=== PATIENT | male | born 1950 | race Caucasian/White ===

== ENCOUNTER → 2016-09-20 | Outpatient (CLI) | payer MEDICARE, BC ==
--- NOTE | 2016-09-08 15:44 | MH ---
cc: KAILEY ESCOTO DATE OF ADMISSION: 09/20/2016 ADMITTING DIAGNOSIS: Cloudy posterior capsule, left eye. HISTORY OF PRESENT ILLNESS: This 64-year-old white male is coming through [facility] for the purpose of a YAG laser posterior capsulotomy of the left eye. He is status post cataract surgery with intraocular lens implant in 2011 and did well postoperatively but now notices a decrease in acuity in his left eye and was found to have a cloudy posterior capsule and elected to have a YAG laser posterior capsulotomy at this time. He also has a history of bilateral wet macular degeneration for which he is undergoing treatment. PAST MEDICAL HISTORY: The patient has history of: 1. Cholesterol problems. 2. Back problems. 3. Kidney stones. 4. Myocardial infarction. 5. Cardiovascular disease. 6. Hypertension. PAST SURGICAL HISTORY: His past surgical history includes: 1. Heart catheterization 2. Back surgery. 3. Bilateral cataract surgery as mentioned above. 4. Skin cancer and melanoma on the left church area. MEDICATIONS: Daily medications include : 1. Lipitor. 2. Metoprolol. 3. Ocular vitamins. 4. Motrin PRN. ALLERGIES: 1. ROBITUSSIN. 2. BEE STINGS. 3. CECLOR. SOCIAL HISTORY: Noncontributory. FAMILY HISTORY: His family history is positive for father with glaucoma and mother and sister with macular degeneration. OCULAR EXAM: On ocular exam the patient's best corrected visual acuity is 20/25 -2 in each eye. Visual allen are full to confrontation testing. Extraocular muscle exam reveals full versions with exophoria at distance and near. Pupils are 3 mm equal, round, reactive to light without afferent defect. Anterior segment examination reveals a posterior chamber intraocular lens implant in place with a cloudy posterior capsule greater in the left eye than the right. Intraocular pressure is 18 in the right eye and 20 in the left by applanation tonometry. Dilated fundus exam revealed sharp disc with cup-to-disc ratio 0.35 in the right eye and 0.4 in the left. There are drusen and retinal pigment epithelial changes in the macula of each eye. A posterior vitreous detachment is present bilaterally. Cobblestone peripheral retinal degeneration is noted inferiorly in both eyes. IMPRESSION: 1. Cloudy posterior capsule left eye greater than right. 2. Pseudophakia both eyes 3. Macular degeneration both eyes - wet form. 4. Posterior vitreous detachment both eyes. PLAN: YAG laser posterior capsulotomy of the left eye through [facility]. MD CONCHITA Mitchell/EDUARD /2:16 PM /3:43 PM
[~2016-09-20] MED LIST: ATOR10TA15 PO; BALANCED SALT SOLN OPHT IRRIG 15 ML BTL ONE; FLUOROMETHOLONE 0.25% OPHT SUSP 5 ML BTL ONE; IBUP200C PO; OCCUVITE; PHENYLEPHRINE HCL 2.5% OPTH SOLN 2 ML BTL ONE; PROPARACAINE HCL 0.5% OPHT SOLN 15 ML BTL ONE; TROPICAMIDE 1% OPHT SOLN 15 ML BTL ONE
--- NOTE | 2016-09-20 13:49 | MP ---
cc: KAILEY SMALLS DATE OF SURGERY: 09/20/2016 PREOPERATIVE DIAGNOSIS Cloudy posterior capsule, left eye. POSTOPERATIVE DIAGNOSIS Cloudy posterior capsule, left eye. OPERATION YAG laser posterior capsulotomy, left eye. SURGEON Kailey Smalls MD ANESTHESIA Topical. COMPLICATIONS None. INDICATIONS See history and physical previously dictated. PROCEDURE The patient arrived at [facility]. Blood pressure was 118/68, pulse 68, respirations 16. A drop of Alphagan P and Mydriacyl were instilled in the left eye. The patient was seated at the YAG laser. A drop of Alcaine was instilled in the left eye and a YAG laser posterior capsulotomy lens was placed on the anterior surface of the left cornea. YAG laser posterior capsulotomy was carried out utilizing 30 exposures of 1.6 millijoules. An adequate opening was seen following the procedure. A drop of Alphagan P was instilled topically. The patient was given a prescription for a topical steroid to be used four times per day and has an appointment for follow up on the first postoperative day in my office. The patient left the [facility] in satisfactory condition. Kailey Smalls MD BRUSH MAKER/TLL /1:15 PM /2:33 PM .3
--- NOTE | 2016-09-20 13:51 | MP ---
cc: KAILEY SMALLS DATE OF SURGERY: 09/20/2016 PREOPERATIVE DIAGNOSIS Cloudy posterior capsule, left eye. POSTOPERATIVE DIAGNOSIS Cloudy posterior capsule, left eye. OPERATION YAG laser posterior capsulotomy, left eye. SURGEON Kailey Smalls MD ANESTHESIA Topical. COMPLICATIONS None. INDICATIONS See history and physical previously dictated. PROCEDURE The patient arrived at [facility]. Blood pressure was 118/68, pulse 68, respirations 16. A drop of Alphagan P and Mydriacyl were instilled in the left eye. The patient was seated at the YAG laser. A drop of Alcaine was instilled in the left eye and a YAG laser posterior capsulotomy lens was placed on the anterior surface of the left cornea. YAG laser posterior capsulotomy was carried out utilizing 30 exposures of 1.6 millijoules. An adequate opening was seen following the procedure. A drop of Alphagan P was instilled topically. The patient was given a prescription for a topical steroid to be used four times per day and has an appointment for follow up on the first postoperative day in my office. The patient left the [facility] in satisfactory condition. 27 and from [facility] the system of [facility], [facility] eyes SUMMARY That she have a bowel for the patient isabella injury. D ER in the [facility] Y. September 20, 1951 need her visit number was [id number] and this is the [facility] eyes. SUMMARY In the right eye blood pressure 164/91, pulse is 65 and the respirations is 16. In the right eye. We had argon laser first there is an argon laser number of exposures was 16 in my settings of 200 micron spot size 0.2 seconds exposure time of 400 milliwatts of power an argon laser number of exposures was 19 of 50 micron spot size 0.1 seconds exposure time and 950 milliwatts of power and a YAG laser number of exposures was seven with 3.9 millijoules of power finishing January 29, 1930 the ER in the [facility] eyes. SUMMARY On the right eye [facility] INDICATIONS September Kailey Smalls MD BARREL STRAIGHTENER/TLL /1:15 PM /1:39 PM .2
== END ==
LOC: PHSDC 11:22
PROVIDERS: ATTEND Ophthalmology
DX: H26.492 Other secondary cataract, left eye (principal)

== ENCOUNTER 2017-04-21 13:54 | Emergency (ER) | payer MEDICARE, BC ==
[~2017-04-21] VITALS: Ht 182.9 cm; Wt 86.0 kg
[~2017-04-21 13:54] MED LIST changes: -BALANCED SALT SOLN OPHT IRRIG 15 ML BTL ONE; -FLUOROMETHOLONE 0.25% OPHT SUSP 5 ML BTL ONE; -PHENYLEPHRINE HCL 2.5% OPTH SOLN 2 ML BTL ONE; -PROPARACAINE HCL 0.5% OPHT SOLN 15 ML BTL ONE; -TROPICAMIDE 1% OPHT SOLN 15 ML BTL ONE
[2017-04-21 14:24] VITALS: BP 158/67; PULSE 65; RESP 16; TEMP 99.1; O2SAT 97
[2017-04-21] MEDS ORDERED: SODIUM CHLOR 0.9% 1000 ML INJ 1,000 ML IV SCH (14:43)
[2017-04-21] MEDS ORDERED: KETOROLAC TROMETHAMINE 30 MG/ML (IVP) VIAL IVP ONE (14:45)
[2017-04-21] MEDS ORDERED: SODIUM CHLORIDE 0.9% FLUSH 10 ML FLUSH IV FLUSH PRN (14:45)
[2017-04-21] MEDS ORDERED: MORPHINE SULFATE 4 MG/ML INJ IV PUSH ONE ×2 (14:45→16:15)
[2017-04-21] MEDS ORDERED: ONDANSETRON HCL 4 MG/2 ML VIAL IVP ONE (14:45)
[2017-04-21 14:59] VITALS: O2SAT 98
[2017-04-21 15:04] LABS: AUTOMATED NEUTROPHIL # 9.1 TH/MM3 (1.8-7.7); BASOPHIL # 0.1 TH/MM3 (0-0.2); BASOPHIL % 0.6 % (0.0-2.0); EOSINOPHIL # 0.2 TH/MM3 (0-0.4); HEMATOCRIT 43.3 % (39.0-51.0); HEMO FLAGS DIFF FINAL; LYMPHOCYTE # 1.4 TH/MM3 (1.0-4.8); MEAN CELL VOLUME 92.9 FL (80.0-100.0); MEAN CORPUSCULAR HEMOGLOBIN 31.6 PG (27.0-34.0); MONO % 6.7 % (0.0-8.0); NEUT % 78.7 % (16.0-70.0); PLATELET COUNT 165 TH/MM3 (150-450); RED BLOOD COUNT 4.66 MIL/MM3 (4.50-5.90); RED CELL DISTRIBUTION WIDTH 12.5 % (11.6-17.2); WHITE BLOOD COUNT 11.6 TH/MM3 (4.0-11.0)
[2017-04-21 15:05] LABS: BLOOD, URINE LARGE (NEG); GLUCOSE,URINE NEG (NEG); KETONE, URINE TRACE mg/dL (NEG); NITRITE,URINE NEG (NEG)
[2017-04-21 15:17] LABS: COMMENT (UR) CULTURE INDICATED; CULTURE IF INDICATED CULTURE INDICATED; RBC, URINE INNUM /hpf (0-3); SQUAMOUS EPITHELIAL CELL URINE 0-5 /hpf (0-5); URINE COLOR BROWN (YELLW/STRAW)
[2017-04-21 15:18] LABS: CHLORIDE 107 MEQ/L (98-107); POTASSIUM 4.4 MEQ/L (3.5-5.1); SODIUM (NA) 140 MEQ/L (136-145)
[2017-04-21 15:22] LABS: ANION GAP 5 MEQ/L (5-15); BICARBONATE 27.9 MEQ/L (21.0-32.0); BLOOD UREA NITROGEN 26 MG/DL (7-18)
[2017-04-21 15:25] LABS: ALT (GPT) 21 U/L (12-78); AST (GOT) 15 U/L (15-37); GLOMERULAR FILTRATION RATE 74 ML/MIN (>89)
[2017-04-21 15:26] LABS: TOTAL BILIRUBIN ADULT 0.3 MG/DL (0.2-1.0)
[2017-04-21 15:28] LABS: ALKALINE PHOSPHATASE 86 U/L (45-117)
[2017-04-21 15:33] VITALS: BP 160/81; PULSE 63; RESP 20; O2SAT 98
--- NOTE | 2017-04-21 15:56 | RADRPT ---
EXAM DATE/TIME: 04/21/2017 15:22 [place] COMPARISON: No previous studies available for comparison. INDICATIONS : Left flank pain. ORAL CONTRAST: No oral contrast ingested. RADIATION DOSE: 16.53 CTDIvol (mGy) MEDICAL HISTORY : Myocardial infarction. SURGICAL HISTORY : None. ENCOUNTER: Initial ACUITY: 1 day PAIN SCALE: 8/10 LOCATION: Left flank TECHNIQUE: Volumetric scanning of the abdomen and pelvis was performed. Using automated exposure control and ad justment of the mA and/or kV according to patient size, radiation dose was kept as low as reasonably achievable to obtain optimal diagnostic quality images. DICOM format image data is available electro nically for review and comparison. FINDINGS: LOWER LUNGS: The visualized lower lungs are clear. LIVER: Homogeneous density without lesion. There is no dilation of the biliary tree. No calcified gallston es. SPLEEN: Normal size without lesion. PANCREAS: Within normal limits. KIDNEYS: 6 mm x 3 mm calculus in the proximal left ureter 3 cm distal to the ureteropelvic junction. Moderate left hydronephrosis and proximal left hydroureter. Prominent perinephric stranding on the left and en largement of the left kidney. Punctate 2 mm calculus in the lower pole of the left. 2 mm calculus in the midpole on the left. 3 mm calculus in the upper pole on the right. 3 mm calculus in the midpole o n the right. Multiple masses identified in the lower pole of the right kidney that are nonspecific on noncontrast exam. It measured up to 2 cm in diameter. Statistically most likely to represent cysts. ADRENAL GLANDS: Within normal limits. VASCULAR: There is no aortic aneurysm. BOWEL/MESENTERY: Numerous colonic diverticula. No evidence of acute diverticulitis. ABDOMINAL WALL: Within normal limits. RETROPERITONEUM: There is no lymphadenopathy. BLADDER: Multiple calculi in the dependent portion of the urinary bladder measuring up to 1.6 cm in diameter. REPRODUCTIVE: Extensive prostate calcification. INGUINAL: There is no lymphadenopathy or hernia. MUSCULOSKELETAL: Within normal limits for patient age. CONCLUSION: 1. 6 mm proximal left ureteral calculus with moderate left hydronephrosis and proximal left hydrouret er. 2. Multiple I lateral renal calculi. 3. Colonic diverticulosis. Rafal Manzo MD on April 21, 2017 at 15:49 Board Certified Radiologist. This report was verified electronically.
[2017-04-21] MEDS ORDERED: IBUP400T20 PO (15:57)
[2017-04-21] MEDS ORDERED: NORC5TAB PO (15:57)
[2017-04-21] MEDS ORDERED: TAMS5CAP PO (15:57)
--- NOTE | 2017-04-21 15:57 | PD ---
HPI Chief Complaint: Flank/Kidney Pain Time Seen by Provider: 14:36 Travel History International Travel<30 days: No Contact w/Intl Traveler<30days: No Traveled to known affect area: No History of Present Illness HPI The patient is a 67-year-old male who presents to the emergency department via private vehicle for left flank pain. The patient has had hematuria of 1 week's duration, however, earlier today developed left flank pain. The pain is located over the left aspect of the flank, nonradiating, associated mild nausea, but there is no vomiting. The patient does have a history of recurrent kidney stones, estimates that he has passed approximately 30 kidney stones over the last 10-15 years. The patient is followed by his urologist, Dr. Velazquez. The patient does note hematuria, denies any dysuria , frequency, urgency, or decreased urinary output. The patient does state he had urologic procedures performed approximately 30-40 years ago, but denies any recent stenting or lithotripsy. Symptoms are moderate, exacerbated by history kidney stones, and there are no current alleviating factors. PFSH Past Medical History Cancer: Yes (SKIN) Cardiovascular Problems: Yes (1987) High Cholesterol: Yes Diabetes: No Diminished Hearing: No Hepatitis: No Hiatal Hernia: No Myocardial Infarction: Yes Thyroid Disease: No Past Surgical History Eye Surgery: Yes ( cataract removal of the left eye with iol) Pacemaker: No Other Surgery: Yes Social History Alcohol Use: No Tobacco Use: Yes (2 PPD) Substance Use: No Allergies-Medications (Allergen,Severity, Reaction): Coded Allergies: cefaclor (Unverified Allergy, Severe, THROAT CLOSES, 04/21/17) guaifenesin (Unverified Allergy, Severe, THROAT CLOSES, 04/21/17) Uncoded Allergies: BEE STINGS (Allergy, Unknown, 08/04/04) Reported Meds & Prescriptions Reported Meds & Active Scripts Active Reported Atorvastatin (Atorvastatin Calcium) 10 Mg Tab 10 Mg PO DAILY [Occuvite] 1 DAILY Review of Systems Except as stated in HPI: all other systems reviewed are Neg General / Constitutional: No: Fever, Chills Cardiovascular: No: Chest Pain or Discomfort Respiratory: No: Shortness of Breath Gastrointestinal: Positive: Nausea, No: Vomiting, Abdominal Pain Genitourinary: Positive: Hematuria, Flank Pain, No: Dysuria Skin: No Rash Physical Exam Narrative GENERAL: Awake, alert, pleasant 67-year-old male who appears his stated age and is in no acute respiratory distress. SKIN: Focused skin assessment warm/dry. HEAD: Atraumatic. Normocephalic. EYES: Pupils equal and round. No scleral icterus. No injection or drainage. ENT: No nasal bleeding or discharge. Mucous membranes pink and moist. NECK: Trachea midline. No JVD. CARDIOVASCULAR: Regular rate and rhythm. No murmur appreciated. RESPIRATORY: No accessory muscle use. Clear to auscultation. Breath sounds equal bilaterally. GASTROINTESTINAL: Abdomen soft, mild left flank tenderness, no left lower quadrant tenderness. Back: No CVA tenderness. Mild left flank tenderness. MUSCULOSKELETAL: No obvious deformities. No clubbing. No cyanosis. No edema. NEUROLOGICAL: Awake and alert. No obvious cranial nerve deficits. Motor grossly within normal limits. Normal speech. PSYCHIATRIC: Appropriate mood and affect; insight and judgment normal. Data Data Last Documented VS Vital Signs Date Time Temp Pulse Resp B/P (MAP) Pulse Ox O2 Delivery O2 Flow Rate FiO2 04/21/17 15:33 63 20 160/81 (107) 98 04/21/17 14:24 99.1 Orders Orders Urinalysis - C+S If Indicated (04/21/17 14:26) Complete Blood Count With Diff (04/21/17 14:43) Comprehensive Metabolic Panel (04/21/17 14:43) Lipase (04/21/17 14:43) Ct Abd/Pel W/O Iv Contrast (04/21/17 14:43) Iv Access Insert/Monitor (04/21/17 14:43) Ecg Monitoring (04/21/17 14:43) Oximetry (04/21/17 14:43) Morphine Inj (Morphine Inj) (04/21/17 14:45) Ondansetron Inj (Zofran Inj) (04/21/17 14:45) Sodium Chlor 0.9% 1000 Ml Inj (Ns 1000 M (04/21/17 14:43) Sodium Chloride 0.9% Flush (Ns Flush) (04/21/17 14:45) Ketorolac Inj (Toradol Inj) (04/21/17 14:45) Urine Culture (04/21/17 14:59) Labs Laboratory Tests Test 04/21/17 14:59 White Blood Count 11.6 TH/MM3 Red Blood Count 4.66 MIL/MM3 Hemoglobin 14.7 GM/DL Hematocrit 43.3 % Mean Corpuscular Volume 92.9 FL Mean Corpuscular Hemoglobin 31.6 PG Mean Corpuscular Hemoglobin Concent 34.0 % Red Cell Distribution Width 12.5 % Platelet Count 165 TH/MM3 Mean Platelet Volume 7.9 FL Neutrophils (%) (Auto) 78.7 % Lymphocytes (%) (Auto) 12.0 % Monocytes (%) (Auto) 6.7 % Eosinophils (%) (Auto) 2.0 % Basophils (%) (Auto) 0.6 % Neutrophils # (Auto) 9.1 TH/MM3 Lymphocytes # (Auto) 1.4 TH/MM3 Monocytes # (Auto) 0.8 TH/MM3 Eosinophils # (Auto) 0.2 TH/MM3 Basophils # (Auto) 0.1 TH/MM3 CBC Comment DIFF FINAL Differential Comment Urine Color BROWN Urine Turbidity CLOUDY Urine pH 6.0 Urine Specific [place] 1.025 Urine Protein 100 mg/dL Urine Glucose (UA) NEG mg/dL Urine Ketones TRACE mg/dL Urine Occult Blood LARGE Urine Nitrite NEG Urine Bilirubin NEG Urine Leukocyte Esterase TRACE Urine RBC INNUM /hpf Urine WBC 9-14 /hpf Urine Squamous Epithelial Cells 0-5 /hpf Microscopic Urinalysis Comment CULTURE INDICATED Blood Urea Nitrogen 26 MG/DL Creatinine 1.00 MG/DL Random Glucose 118 MG/DL Total Protein 6.7 GM/DL Albumin 3.6 GM/DL Calcium Level 8.9 MG/DL Alkaline Phosphatase 86 U/L Aspartate Amino Transf (AST/SGOT) 15 U/L Alanine Aminotransferase (ALT/SGPT) 21 U/L Total Bilirubin 0.3 MG/DL Sodium Level 140 MEQ/L Potassium Level 4.4 MEQ/L Chloride Level 107 MEQ/L Carbon Dioxide Level 27.9 MEQ/L Anion Gap 5 MEQ/L Estimat Glomerular Filtration Rate 74 ML/MIN Lipase 119 U/L [facility] Medical Decision Making Medical Screen Exam Complete: Yes Emergency Medical Condition: Yes Medical Record Reviewed: Yes Interpretation(s) Laboratory Tests Test 04/21/17 14:59 White Blood Count 11.6 TH/MM3 Red Blood Count 4.66 MIL/MM3 Hemoglobin 14.7 GM/DL Hematocrit 43.3 % Mean Corpuscular Volume 92.9 FL Mean Corpuscular Hemoglobin 31.6 PG Mean Corpuscular Hemoglobin Concent 34.0 % Red Cell Distribution Width 12.5 % Platelet Count 165 TH/MM3 Mean Platelet Volume 7.9 FL Neutrophils (%) (Auto) 78.7 % Lymphocytes (%) (Auto) 12.0 % Monocytes (%) (Auto) 6.7 % Eosinophils (%) (Auto) 2.0 % Basophils (%) (Auto) 0.6 % Neutrophils # (Auto) 9.1 TH/MM3 Lymphocytes # (Auto) 1.4 TH/MM3 Monocytes # (Auto) 0.8 TH/MM3 Eosinophils # (Auto) 0.2 TH/MM3 Basophils # (Auto) 0.1 TH/MM3 CBC Comment DIFF FINAL Differential Comment Urine Color BROWN Urine Turbidity CLOUDY Urine pH 6.0 Urine Specific [place] 1.025 Urine Protein 100 mg/dL Urine Glucose (UA) NEG mg/dL Urine Ketones TRACE mg/dL Urine Occult Blood LARGE Urine Nitrite NEG Urine Bilirubin NEG Urine Leukocyte Esterase TRACE Urine RBC INNUM /hpf Urine WBC 9-14 /hpf Urine Squamous Epithelial Cells 0-5 /hpf Microscopic Urinalysis Comment CULTURE INDICATED Blood Urea Nitrogen 26 MG/DL Creatinine 1.00 MG/DL Random Glucose 118 MG/DL Total Protein 6.7 GM/DL Albumin 3.6 GM/DL Calcium Level 8.9 MG/DL Alkaline Phosphatase 86 U/L Aspartate Amino Transf (AST/SGOT) 15 U/L Alanine Aminotransferase (ALT/SGPT) 21 U/L Total Bilirubin 0.3 MG/DL Sodium Level 140 MEQ/L Potassium Level 4.4 MEQ/L Chloride Level 107 MEQ/L Carbon Dioxide Level 27.9 MEQ/L Anion Gap 5 MEQ/L Estimat Glomerular Filtration Rate 74 ML/MIN Lipase 119 U/L Differential Diagnosis Differential diagnosis includes nephrolithiasis, hydronephrosis, pyelonephritis , diverticulitis, infarcted kidney. Narrative Course IV was established, labs are drawn and sent, and the patient was placed on cardiac telemetry monitoring and continuous pulse oximetry monitoring. UA was sent to lab. UA does reveal innumerable RBCs, 9-14 WBCs, most likely secondary to hematuria, but patient will be treated with Bactrim. White count is minimally elevated 11.6, creatinine is normal. CT the abdomen and pelvis is positive for left nephrolithiasis. The patient was reevaluated at 3:51 PM. The patient states his pain is still to 5/10. The patient does have a kidney stone, will be provided a copy of his CT results and lab results at discharge. He is advised to follow-up with his urologist tomorrow. Return sooner if symptoms worsen or progress. Diagnosis Primary Impression: Nephrolithiasis Patient Instructions: General Instructions Additional Instructions: Medications as directed. Follow-up with your primary physician. Follow-up with your urologist. Plenty fluids to stay hydrated. Please provide the patient a copy of his CT results and lab results at discharge. Med/Other Pt SpecificInfo: Prescription(s) given Scripts Tamsulosin (Flomax) 0.4 Mg Cap 0.4 MG PO HS for Manage Prostate Problems, #7 CAP 0 Refills Prov: Hugh Arias MD 04/21/17 Hydrocodone-Acetaminophen ([place]) 5-325 mg Tab 1 TAB PO Q6H Y for PAIN, #20 TAB 0 Refills Prov: Hugh Arias MD 04/21/17 Ibuprofen (Ibuprofen) 400 Mg Tab 400 MG PO Q6H Y for PAIN SCALE 1 TO 10, #20 TAB 0 Refills Prov: Hugh Arias MD 04/21/17 Disposition: 01 DISCHARGE HOME Condition: Stable Hugh Arias MD Apr 21, 2017 15:57
[2017-04-21] MEDS ORDERED: BACT800T5 PO (16:06)
[2017-04-21 16:13] VITALS: BP 158/74; PULSE 78; RESP 18; O2SAT 95
== END 2017-04-21 17:14 | disposition home or self-care (01) ==
LOC: PHED 13:54
DX: N13.2 Hydronephrosis with renal and ureteral calculous obstruction (principal); K57.30 Diverticulosis of large intestine without perforation or abscess without bleeding; F17.200 Nicotine dependence, unspecified, uncomplicated
CPT/HCPCS: 74176; 80053; 81001; 83690; 85025; 87086; 96361; 96374; 96375; 96376; 99285; J1885; J2270; J2405; J7030

== ENCOUNTER 2017-05-17 14:01 | Emergency (ER) | payer MEDICARE, BC ==
[~2017-05-17] VITALS: Ht 182.9 cm; Wt 87.7 kg
[~2017-05-17 14:01] MED LIST changes: +BACT800T5 PO; -IBUP200C PO; +IBUP400T20 PO; +NORC5TAB PO; +TAMS5CAP PO
[2017-05-17 14:23] VITALS: BP 181/80; PULSE 66; RESP 18; TEMP 97.8; O2SAT 96
[2017-05-17] MEDS ORDERED: LISI-519 PO (14:59)
[2017-05-17] MEDS ORDERED: LIPI10TA PO (14:59)
[2017-05-17] MEDS ORDERED: HYDROmorphone HCL PF 1 MG/ML VIAL IV PUSH ONE (15:00)
[2017-05-17] MEDS ORDERED: ONDANSETRON HCL 4 MG/2 ML VIAL IVP ONE (15:00)
[2017-05-17] MEDS ORDERED: KETOROLAC TROMETHAMINE 30 MG/ML (IVP) VIAL IVP ONE (15:00)
[2017-05-17] MEDS ORDERED: SODIUM CHLORIDE 0.9% FLUSH 10 ML FLUSH IVF PRN (15:00)
--- NOTE | 2017-05-17 15:11 | PD ---
HPI Chief Complaint: Flank/Kidney Pain Time Seen by Provider: 14:46 Travel History International Travel<30 days: No Contact w/Intl Traveler<30days: No Traveled to known affect area: No History of Present Illness HPI This 67-year-old male is complaining of right flank pain. This gentleman has a 40 year history of kidney stones. He says he has passed many kidney stones. He was seen in the ER a month ago with a left-sided kidney stone that was 6 mm in the proximal ureter. He was noted to have bilateral kidney stones at that time. He took Lortab without much response. He has not had fever or chills. He is not aware of having passed the stone on the left side. PFSH Past Medical History Cancer: Yes (SKIN) Cardiac Catheterization: Yes (WITH [place] 1987) Cardiovascular Problems: Yes (hx heart attack) High Cholesterol: Yes Coronary Artery Disease: Yes Diabetes: No Diminished Hearing: No Hepatitis: No Hiatal Hernia: No Hypertension: Yes Immunizations Current: Yes Myocardial Infarction: Yes Thyroid Disease: No Influenza Vaccination: No ?: Not Past Surgical History Eye Surgery: Yes ( cataract removal of the left eye with iol) Pacemaker: No Other Surgery: Yes Social History Alcohol Use: No Tobacco Use: Yes (2 PPD) Substance Use: No Allergies-Medications (Allergen,Severity, Reaction): Coded Allergies: cefaclor (Unverified Allergy, Severe, THROAT CLOSES, 04/21/17) guaifenesin (Unverified Allergy, Severe, THROAT CLOSES, 04/21/17) Uncoded Allergies: BEE STINGS (Allergy, Unknown, 08/04/04) Reported Meds & Prescriptions Reported Meds & Active Scripts Active Percocet (Oxycodone-Acetaminophen) 10-325 mg Tab 1 Tab PO Q4H PRN [place] (Hydrocodone-Acetaminophen) 5-325 mg Tab 1 Tab PO Q6H PRN Reported Lisinopril 5 Mg Tab 5 Mg PO DAILY Lipitor (Atorvastatin Calcium) 10 Mg Tab 0.5 Tab PO DAILY [Occuvite] 1 DAILY Review of Systems General / Constitutional: No: Fever, Chills Eyes: No: Diploplia, Blurred Vision HENT: No: Headaches Cardiovascular: No: Chest Pain or Discomfort, Palpitations Respiratory: No: Cough, Shortness of Breath Gastrointestinal: No: Nausea, Vomiting Genitourinary: Positive: Hematuria, Flank Pain Musculoskeletal: No: Myalgias, Arthralgias Skin: No Rash Physical Exam Narrative GENERAL: Well-developed male SKIN: Focused skin assessment warm/dry. HEAD: Atraumatic. Normocephalic. EYES: Pupils equal and round. No scleral icterus. No injection or drainage. ENT: No nasal bleeding or discharge. Mucous membranes pink and moist. NECK: Trachea midline. No JVD. CARDIOVASCULAR: Regular rate and rhythm. No murmur appreciated. RESPIRATORY: No accessory muscle use. Clear to auscultation. Breath sounds equal bilaterally. GASTROINTESTINAL: Abdomen soft, non-tender, nondistended. Hepatic and splenic margins not palpable. There is right CVA tenderness MUSCULOSKELETAL: No obvious deformities. No clubbing. No cyanosis. No edema. NEUROLOGICAL: Awake and alert. No obvious cranial nerve deficits. Motor grossly within normal limits. Normal speech. PSYCHIATRIC: Appropriate mood and affect; insight and judgment normal. Data Data Last Documented VS Vital Signs Date Time Temp Pulse Resp B/P (MAP) Pulse Ox O2 Delivery O2 Flow Rate FiO2 05/17/17 14:23 97.8 66 18 181/80 (113) 96 Orders Orders Basic Metabolic Panel (Bmp) (05/17/17 14:57) Complete Blood Count With Diff (05/17/17 14:57) Urinalysis - C+S If Indicated (05/17/17 14:57) Ct Abd/Pel W/O Iv Contrast (05/17/17 14:57) Iv Access Insert/Monitor (05/17/17 14:57) Ketorolac Inj (Toradol Inj) (05/17/17 15:00) Ondansetron Inj (Zofran Inj) (05/17/17 15:00) Sodium Chloride 0.9% Flush (Ns Flush) (05/17/17 15:00) Hydromorphone Pf Inj (Dilaudid Pf Inj) (05/17/17 15:00) Labs Laboratory Tests Test 05/17/17 14:55 05/17/17 15:05 Urine Collection Type VOIDED Urine Color YELLOW Urine Turbidity SLIGHT Urine pH 5.5 Urine Specific [place] 1.026 Urine Protein 100 mg/dL Urine Glucose (UA) NEG mg/dL Urine Ketones NEG mg/dL Urine Occult Blood LARGE Urine Nitrite NEG Urine Bilirubin NEG Urine Leukocyte Esterase TRACE Urine RBC INNUM /hpf Urine WBC 6-8 /hpf Urine Squamous Epithelial Cells 0-5 /hpf Urine Bacteria RARE /hpf Microscopic Urinalysis Comment CULT NOT INDICATED White Blood Count 11.9 TH/MM3 Red Blood Count 4.71 MIL/MM3 Hemoglobin 14.6 GM/DL Hematocrit 43.8 % Mean Corpuscular Volume 93.1 FL Mean Corpuscular Hemoglobin 30.9 PG Mean Corpuscular Hemoglobin Concent 33.2 % Red Cell Distribution Width 12.4 % Platelet Count 170 TH/MM3 Mean Platelet Volume 7.9 FL Neutrophils (%) (Auto) 79.9 % Lymphocytes (%) (Auto) 9.9 % Monocytes (%) (Auto) 8.2 % Eosinophils (%) (Auto) 1.2 % Basophils (%) (Auto) 0.8 % Neutrophils # (Auto) 9.5 TH/MM3 Lymphocytes # (Auto) 1.2 TH/MM3 Monocytes # (Auto) 1.0 TH/MM3 Eosinophils # (Auto) 0.1 TH/MM3 Basophils # (Auto) 0.1 TH/MM3 CBC Comment DIFF FINAL Differential Comment Blood Urea Nitrogen 24 MG/DL Creatinine 1.10 MG/DL Random Glucose 119 MG/DL Calcium Level 8.8 MG/DL Sodium Level 142 MEQ/L Potassium Level 4.1 MEQ/L Chloride Level 111 MEQ/L Carbon Dioxide Level 24.0 MEQ/L Anion Gap 7 MEQ/L Estimat Glomerular Filtration Rate 66 ML/MIN [facility] Medical Decision Making Medical Screen Exam Complete: Yes Emergency Medical Condition: Yes Medical Record Reviewed: Yes Differential Diagnosis Differential includes renal colic, UTI, Narrative Course Patient has had recently had a left stone which is not aware of passing and is possibly could have bilateral stones I felt it was important to do a CT to see if the size and position of the stones. He has been given Toradol and Dilaudid with improvement of his pain. CT shows 3 stones on the right side with hydronephrosis. Pain is currently controlled. He will be released with prescription for Percocet tens is a Lortab fives has not been helpful. He is to follow-up with Dr. Rivera Diagnosis Primary Impression: Renal colic on right side Referrals: Andrzej Rivera MD Scripts Oxycodone-Acetaminophen (Percocet) 10-325 mg Tab 1 TAB PO Q4H Y for PAIN, #20 TAB 0 Refills Prov: MacMahon,Orlando MD 05/17/17 Disposition: 01 DISCHARGE HOME Condition: Stable Orlando Renee MD May 17, 2017 15:11
[2017-05-17 15:16] LABS: AUTOMATED NEUTROPHIL # 9.5 TH/MM3 (1.8-7.7); BASOPHIL # 0.1 TH/MM3 (0-0.2); BASOPHIL % 0.8 % (0.0-2.0); EOSINOPHIL # 0.1 TH/MM3 (0-0.4); EOSINOPHIL % 1.2 % (0.0-4.0); HEMATOCRIT 43.8 % (39.0-51.0); HEMOGLOBIN 14.6 GM/DL (13.0-17.0); LYMPH % 9.9 % (9.0-44.0); LYMPHOCYTE # 1.2 TH/MM3 (1.0-4.8); MEAN CELL VOLUME 93.1 FL (80.0-100.0); MEAN CORPUSCULAR HEMOGLOBIN 30.9 PG (27.0-34.0); MEAN CORPUSCULAR HGB CONC 33.2 % (32.0-36.0); MEAN PLATELET VOLUME 7.9 FL (7.0-11.0); MONO % 8.2 % (0.0-8.0); NEUT % 79.9 % (16.0-70.0); PLATELET COUNT 170 TH/MM3 (150-450); RED BLOOD COUNT 4.71 MIL/MM3 (4.50-5.90); RED CELL DISTRIBUTION WIDTH 12.4 % (11.6-17.2); WHITE BLOOD COUNT 11.9 TH/MM3 (4.0-11.0)
[2017-05-17 15:20] LABS: BILIRUBIN, URINE NEG (NEG); BLOOD, URINE LARGE (NEG); GLUCOSE,URINE NEG (NEG); KETONE, URINE NEG (NEG); NITRITE,URINE NEG (NEG); PH, URINE 5.5 (5.0-8.5); URINE LEUKOCYTE ESTERASE TRACE (NEG)
[2017-05-17 15:33] LABS: CALCIUM 8.8 MG/DL (8.5-10.1)
[2017-05-17 15:37] LABS: CREATININE 1.1 MG/DL (0.60-1.30)
[2017-05-17 15:39] LABS: RBC, URINE INNUM /hpf (0-3); SQUAMOUS EPITHELIAL CELL URINE 0-5 /hpf (0-5); URINE COLOR YELLOW (YELLW/STRAW)
[2017-05-17 15:40] LABS: BACTERIA, URINE RARE /hpf
[2017-05-17] MEDS ORDERED: PERC10TA27 PO (15:41)
--- NOTE | 2017-05-17 15:53 | RADRPT ---
EXAM DATE/TIME: 05/17/2017 15:22 [place] COMPARISON: CT ABDOMEN & PELVIS W/O CONTRAST, April 21, 2017, 15:22. INDICATIONS : Right flank pain. ORAL CONTRAST: No oral contrast ingested. RADIATION DOSE: 21.66 CTDIvol (mGy) MEDICAL HISTORY : Renal calculi. Myocardial infarction. Hypertension.Skin cancer. SURGICAL HISTORY : Back surgery. ENCOUNTER: Initial ACUITY: 1 day PAIN SCALE: 6/10 LOCATION: Right flank TECHNIQUE: Volumetric scanning of the abdomen and pelvis was performed. Using automated exposure control and adjustment of the mA and/or kV according to patient size, radiation dose was kept as low as reasonably achievable to obtain optimal diagnostic quality images. DICOM format image data is av ailable electronically for review and comparison. FINDINGS: LOWER LUNGS: The visualized lower lungs are clear. LIVER: Homogeneous density without lesion. There is no dilation of the biliary tree. No calcifi ed gallstones. SPLEEN: Normal size without lesion. PANCREAS: Within normal limits. KIDNEYS: There is severe right-sided hydronephrosis extending to what appear to be 3 separate bul ky calcified ureteral calculi in the mid to distal right ureter. These measure 7 mm in axial dimensio n and 7 mm, 6 mm and 5 mm in coronal projection. There are stable 4 mm and 5 mm nonobstructing calyce al calculi in the posterior mid and superior poles of the right kidney. There is a stable 3 mm nonobs tructing calyceal calculi in the anterior mid left kidney. No additional calcified calculi are noted. There is a stable 2.2 cm cyst in the anterior-inferior pole of the right kidney. ADRENAL GLANDS: Within normal limits. VASCULAR: There is no aortic aneurysm. BOWEL/MESENTERY: Moderate sigmoid diverticulosis without significant inflammatory change. Bowel a ppears unremarkable without evidence for obstruction. ABDOMINAL WALL: Within normal limits. RETROPERITONEUM: There is no lymphadenopathy. BLADDER: Redemonstration of multiple bulky calcified calculi in the dependent portion of the blad dash measuring up to 1.8 cm. REPRODUCTIVE: Nonspecific prostatic calcifications. INGUINAL: Small bilateral largely fat containing inguinal hernia. MUSCULOSKELETAL: Within normal limits for patient age. CONCLUSION: 1. Severe right-sided hydroureteronephrosis extending to 3 separate or fragmented bulky calcified mid to distal ureteral calculi measuring 7 x 7 mm, 7 x 6 mm and 7 x 5 mm. 2. Small bilateral nonobstructing calyceal calculi measuring 3-5 mm, as above.\ 3. Stable multiple bulky calcified bladder calculi measuring up to 1.8 cm. 4. Additional ancillary findings, as above. Jason Armijo MD on May 17, 2017 at 15:34 Board Certified Radiologist. This report was verified electronically.
[2017-05-17 16:05] VITALS: BP 143/77; PULSE 68; RESP 16; O2SAT 96
== END 2017-05-17 16:16 | disposition home or self-care (01) ==
LOC: PHED 14:01
DX: N13.2 Hydronephrosis with renal and ureteral calculous obstruction (principal); I10 Essential (primary) hypertension; I25.10 Atherosclerotic heart disease of native coronary artery without angina pectoris; I25.2 Old myocardial infarction; F17.200 Nicotine dependence, unspecified, uncomplicated
CPT/HCPCS: 74176; 80048; 81001; 85025; 96374; 96375; 99285; J1170; J1885; J2405

== ENCOUNTER → 2017-09-05 | Outpatient (CLI) | payer MEDICARE, BC ==
[~2017-09-05] MED LIST changes: -ATOR10TA15 PO; -BACT800T5 PO; +BALANCED SALT SOLN OPHT IRRIG 15 ML BTL ONE; +FLUOROMETHOLONE 0.25% OPHT SUSP 5 ML BTL ONE; -IBUP400T20 PO; +LIPI10TA PO; +LISI-519 PO; +PERC10TA27 PO; +PHENYLEPHRINE HCL 2.5% OPTH SOLN 2 ML BTL ONE; +PROPARACAINE HCL 0.5% OPHT SOLN 15 ML BTL ONE; -TAMS5CAP PO; +TROPICAMIDE 1% OPHT SOLN 15 ML BTL ONE
--- NOTE | 2017-09-05 07:33 | MH ---
cc: KAILEY ESCOTO DATE OF ADMISSION 09/05/2017 ADMISSION DIAGNOSIS Cloudy posterior capsule right eye. HISTORY OF PRESENT ILLNESS This 67-year-old white male is coming through [facility] for the purpose of a YAG laser posterior capsulotomy of the right eye. He is status post bilateral cataract surgery with intraocular lens implants and YAG laser posterior capsulotomy on the left eye and now is coming through for the YAG laser posterior capsulotomy on the right eye. PAST MEDICAL HISTORY The patient has a history of: 1. Cholesterol problems 2. Back problems 3. Kidney stones 4. A myocardial infarction in 1987. 5. Hypertension PAST SURGICAL HISTORY Includes the: 1. Bilateral cataract surgery as well as YAG laser posterior capsulotomy on the left. 2. He also had a laser surgery for kidney stones and stents multiple times. MEDICATIONS The daily medications include: 6. Vitamins for macular degeneration as well as. 7. Lipitor. 8. Motrin p.r.n. 9. Urocit-K 10. Eylea injection for the macular degeneration ALLERGIES He is allergic to CECLOR, ROBITUSSIN AND BEE STINGS. SOCIAL HISTORY Noncontributory FAMILY HISTORY Positive for father with glaucoma and mother and sister with macular degeneration. REVIEW OF SYSTEMS Noncontributory OCULAR EXAM On ocular exam, the patient's best corrected visual acuity is 20/30 -1 in the right eye and 20/25 in the left. Visual allen are full to confrontation testing. Extraocular muscle exam reveals full versions with exophoria at distance and near. Pupils are 3 mm equal, round, and reactive to light without afferent defect. There is a mild distortion on the Amsler grid of the right eye and the Amsler grid is within normal limits on the left. Anterior segment examination reveals a posterior chamber intraocular lens in place bilaterally with a YAG laser posterior capsulotomy in the left eye and a cloudy posterior capsule on the right. Intraocular pressure is 17 in the right eye and 19 in the left by applanation tonometry. Dilated fundus exam revealed sharp disks with cup-to-disk ratio 0.35 in the right eye is 0.4 in the left. There are drusen and retinal pigment epithelial changes bilaterally in the macula. Posterior vitreous detachment is present bilaterally and cobblestone peripheral retinal degeneration is noted inferiorly in both eyes. IMPRESSION 1. Cloudy posterior capsule right eye. 2. Pseudophakia both eyes 3. Wet macular degeneration bilaterally. 4. Posterior vitreous detachment both eyes 5. Cobblestone peripheral retinal degeneration inferiorly both eyes PLAN The plan is YAG laser posterior capsulotomy of the right eye through [facility]. MD CONCHITA Mitchell/ELDA /12:02 PM /7:29 AM
--- NOTE | 2017-09-06 12:45 | MP ---
cc: [facility] DATE OF SURGERY: 09/05/2017 PREOPERATIVE DIAGNOSIS: Cloudy posterior capsule right eye. POSTOPERATIVE DIAGNOSIS: Cloudy posterior capsule right eye. OPERATION: YAG laser posterior capsulotomy, right eye. SURGEON: Fer Smalls MD ANESTHESIA: Topical. COMPLICATIONS: None. INDICATIONS: See history and physical previously dictated. PROCEDURE: The patient arrived at [facility]. Blood pressure was 149/71, pulse 74, respirations 16. A drop of Alphagan P and Mydriacyl were instilled in the right eye. The patient was seated at the YAG laser. A drop of Alcaine was instilled in the right eye and a YAG laser posterior capsulotomy lens was placed on the anterior surface of the right cornea. YAG laser posterior capsulotomy was carried out utilizing 49 exposures of 1.7 millijoules. An adequate opening was seen following the procedure. A drop of Alphagan P was instilled topically. The patient was given a prescription for a topical steroid to be used four times per day and has an appointment for follow up on the first postoperative day in my office. The patient left the [facility] in satisfactory condition. MD CONCHITA Mitchell/ /12:32 PM /12:31 PM .6
== END ==
LOC: PHSDC 10:06
PROVIDERS: ATTEND Ophthalmology
DX: H26.491 Other secondary cataract, right eye (principal); H35.3230 Exudative age-related macular degeneration, bilateral, stage unspecified; H43.813 Vitreous degeneration, bilateral; I25.2 Old myocardial infarction; I10 Essential (primary) hypertension; N20.0 Calculus of kidney; Z96.1 Presence of intraocular lens